=== PATIENT | male | born 1970 | race Caucasian/White ===

== ENCOUNTER → 2024-12-04 18:48 | Outpatient (REF) | payer OTHER, SELFPAY | LOC: RAD 18:48 | PROVIDERS: ATTENDING PHYSICIAN Family Medicine | DX: M72.2 Plantar fascial fibromatosis (principal) | CPT/HCPCS: 73630 ==

== ENCOUNTER → 2025-01-25 09:57 | Outpatient (REF) | payer OTHER, SELFPAY | LOC: RAD 09:57 | PROVIDERS: ATTENDING PHYSICIAN Family Medicine | DX: K21.9 Gastro-esophageal reflux disease without esophagitis (principal) | CPT/HCPCS: 74246 ==